=== PATIENT | male | born 1955 | race Hispanic/Latino ===

== ENCOUNTER 2019-10-18 18:25 | Emergency (ER) | payer OTHER ==
[2019-10-18] MEDS ORDERED: NA CHLORIDE 0.9% 1,000 ML ONE ×2 (18:55→20:22)
[2019-10-18 19:26] LABS: Absolute Lymphocytes (CBC) 3.7 K/uL (0.7-4.9); Basophils % 0.9 % (0-1.3); Hematocrit 49.9 % (39.6-49.0); Lymphocytes % 34.3 % (15.3-44.8); MPV 9.5 fL (7.6-11.3); RBC Red Blood Cell Count 5.64 M/uL (4.33-5.43)
[2019-10-18 21:21] LABS: Urine Blood NEGATIVE (NEG); Urine Glucose 2+ (NEG); Urine Protein NEGATIVE (NEG)
[2019-10-18 21:29] LABS: Urine Bacteria <20 /HPF (NONE SEEN); Urine Culture Reflex Order NOT NEEDED; Urine RBC <5 /HPF (NONE SEEN)
[2019-10-18 22:12] LABS: ALT/SGPT 45 U/L (12-78); AST/SGOT 68 U/L (15-37); Albumin 3.1 g/dL (3.4-5.0); Alkaline Phosphatase 116 U/L (45-117); BUN Blood Urea Nitrogen 13 mg/dL (7-18); Bicarbonate 21 mmol/L (21-32); Bilirubin Total 0.3 mg/dL (0.2-1.0); Glucose Level 334 mg/dL (74-106); Protein, Total 6.7 g/dL (6.4-8.2); Sodium Level 138 mmol/L (136-145)
[2019-10-18 22:13] LABS: Potassium ND mmol/L (3.5-5.1)
--- NOTE | 2019-10-18 22:16 | EDPHYS ---
Physician Documentation [facility] Name: Vitaly Weller Age: 64 yrs Sex: Male : 1955 Arrival Date: 10/18/2019 Time: 18:37 Bed 18 Private MD: ED Physician Andrew Mayfield HPI: 10/17 18:56 This 64 yrs old Male presents to ER via Ambulatory with complaints of High pm1 Blood Sugar. 18:56 The patient or guardian reports hyperglycemia, that was potentially precipitated by pm1 Unknown. Onset: The symptoms/episode began/occurred 1 week(s) ago. Associated signs and symptoms: Pertinent positives: polydipsia, polyuria, intermittent headache and nausea that has resolved, Pertinent negatives: Abdominal pain. The patient has not experienced similar symptoms in the past. The patient has not recently seen a physician, and does not have an established primary care provider. Patient was checking his blood sugar throughout the day today and they were reading in the 400s. Historical: - Allergies: 18:47 No Known Allergies; ll1 - PMHx: 18:47 None; ll1 - PSHx: 18:47 bilateral neck surgery-cannot recall procedure; ll1 - Social history:: Patient/guardian denies using alcohol, street drugs, tobacco products. ROS: 18:56 Constitutional: Negative for fever, chills, and weight loss, ENT: Negative for injury, pm1 pain, and discharge, Neck: Negative for injury, pain, and swelling, Cardiovascular: Negative for chest pain, palpitations, and edema, Respiratory: Negative for shortness of breath, cough, wheezing, and pleuritic chest pain. 18:56 Back: Negative for injury and pain, : Negative for injury, bleeding, discharge, and swelling, MS/Extremity: Negative for injury and deformity, Skin: Negative for injury, rash, and discoloration. 18:56 Abdomen/GI: Positive for Nausea that has resolved, Negative for abdominal pain, vomiting, diarrhea, constipation. 18:56 Neuro: Positive for Headache that has resolved. 18:56 Endocrine: Positive for polydipsia, polyuria. Exam: 18:56 Constitutional: This is a well developed, well nourished patient who is awake, alert, pm1 and in no acute distress. Head/Face: Normocephalic, atraumatic. Neck: Trachea midline, no thyromegaly or masses palpated, and no cervical lymphadenopathy. Supple, full range of motion without nuchal rigidity, or vertebral point tenderness. No Meningismus. Chest/axilla: Normal chest wall appearance and motion. Nontender with no deformity. No lesions are appreciated. 18:56 Abdomen/GI: Soft, non-tender. No distension. No guarding or rebound. No evidence of tenderness throughout. Back: No spinal tenderness. No costovertebral tenderness. Full range of motion. 18:56 Skin: Warm, dry with normal turgor. Normal color with no rashes, no lesions, and no evidence of cellulitis. MS/ Extremity: Pulses equal, no cyanosis. Neurovascular intact. Full, normal range of motion. 18:56 Cardiovascular: Exam negative for acute changes, Rate: normal, Rhythm: regular, Pulses: no pulse deficits are appreciated, Edema: is not appreciated. 18:56 Respiratory: Exam negative for acute changes, shortness of breath, wheezing. 18:56 Neuro: Exam negative for acute changes, Orientation: is normal, Mentation: is normal, Motor: is normal, moves all fours, Gait: is steady, at a normal pace, without difficulty. Vital Signs: 18:44 BP 129 / 89; Pulse 66; Resp 18; Temp 97.0; Pulse Ox 100% ; Pain 0/10; ll1 19:00 BP 121 / 80; Pulse 72; Resp 18; Pulse Ox 97% ; ah 20:00 BP 114 / 71; Pulse 59; Resp 18; Pulse Ox 99% ; ah 21:15 BP 151 / 90; Pulse 58; Resp 18; Pulse Ox 99% ; ea 22:00 BP 120 / 80; Pulse 58; Resp 18; Pulse Ox 98% ; ea MDM: 18:40 Patient medically screened. [facility] 20:03 Data reviewed: vital signs. Data interpreted: Pulse oximetry: on room air is 100 %. pm1 Interpretation: normal. 21:35 ED course: Rocephin canceled. No UTI present. Nitrite "positive" was input error. Urine pm1 microscopy is negative. 22:15 Counseling: I had a detailed discussion with the patient and/or guardian regarding: the pm1 historical points, exam findings, and any diagnostic results supporting the discharge/admit diagnosis, lab results, the need for outpatient follow up, to return to the emergency department if symptoms worsen or persist or if there are any questions or concerns that arise at home. 10/17 18:44 Order name: CBC with Diff; Complete Time: 20:11 pm1 10/17 18:44 Order name: CMP; Complete Time: 22:14 pm1 10/17 18:57 Order name: Glucose, Ancillary Testing; Complete Time: 19:36 EDMS 10/17 20:51 Order name: Urine Microscopic Only; Complete Time: 21:33 pm1 10/17 18:44 Order name: Urine Dipstick-Ancillary (obtain specimen); Complete Time: 20:09 pm1 10/17 18:44 Order name: IV Saline Lock; Complete Time: 19:19 pm1 10/17 18:44 Order name: Fingerstick Glucose; Complete Time: 18:46 pm1 10/17 21:17 Order name: Urine Dipstick--Ancillary (enter results); Complete Time: 21:22 mw2 10/17 21:25 Order name: Glucose, Ancillary Testing; Complete Time: 21:25 EDMS Administered Medications: 19:10 Drug: NS 0.9% 1000 ml Route: IV; Rate: 1000 ml; Site: right antecubital; 21:00 Follow up: Response: No adverse reaction; IV Status: Completed infusion; IV Intake: ea 1000ml 20:25 Drug: NS 0.9% 1000 ml Route: IV; Rate: 1000 ml; Site: right antecubital; 21:30 Follow up: Response: No adverse reaction; IV Status: Completed infusion; IV Intake: ea 1000ml 21:34 Not Given (Physician Discretion; No UTI present. Nitrite positive was an input error): pm1 Rocephin 1 grams IV at calculated rate once; Given slow IV push per pharmacy instructions Disposition: 10/18 10:07 Co-signature as Attending Physician, Andrew Mayfield MD I agree with the assessment and andie plan of care. Disposition: 10/18/19 22:15 Discharged to Home. Impression: Hyperglycemia, unspecified. - Condition is Stable. - Discharge Instructions: Fat and Cholesterol Restricted Diet, Hyperglycemia, Blood Glucose Monitoring, Adult, High Cholesterol. - Prescriptions for Metformin 500 mg Oral Tablet - take 1 tablet by ORAL route once daily for 7 days Then take 1 tablet with morning meals AND evening meals; 21 tablet. - Medication Reconciliation Form, Thank You Letter, Antibiotic Education, Prescription Opioid Use form. - Follow up: Emergency Department; When: As needed; Reason: Worsening of condition. Follow up: Private Physician; When: 2 - 3 days; Reason: Recheck today's complaints, Continuance of care, Re-evaluation by your physician. - Problem is new. - Symptoms have improved. Signatures: Dispatcher [employer] EDID Andrew Mayfield MD MD cha Marinas, Patrick, TECHNOLOGIST INFECTIOUS DISEASE TECHNOLOGIST INFECTIOUS DISEASE pm1 Margarita Martinez RN RN ea Harris, Amy, RN RN ah Lewis, Lynsay, RN RN ll1 Corrections: (The following items were deleted from the chart) 10/17 21:17 20:19 URINE DIPSTICK--ANCILLARY+U.LAB.BRZ ordered. EDID EDID :17 20:49 URINE DIPSTICK--ANCILLARY+U.LAB.BRZ reviewed. pm1 EDMS 21:18 20:51 Urine Culture+BA.LAB.BRZ ordered. [facility] EDID 22:27 22:15 10/18/2019 22:15 Discharged to Home. Impression: Hyperglycemia, unspecified. ea Condition is Stable. Discharge Instructions: Hyperglycemia, Blood Glucose Monitoring, Adult, Fat and Cholesterol Restricted Diet, High Cholesterol. Prescriptions for Metformin 500 mg Oral Tablet - take 1 tablet by ORAL route once daily for 7 days Then take 1 tablet with morning meals AND evening meals; 21 tablet. and Forms are Medication Reconciliation Form, Thank You Letter, Antibiotic Education, Prescription Opioid Use. Follow up: Emergency Department; When: As needed; Reason: Worsening of condition. Follow up: Private Physician; When: 2 - 3 days; Reason: Recheck today's complaints, Continuance of care, Re-evaluation by your physician. Problem is new. Symptoms have improved. pm1
--- NOTE | 2019-10-18 22:16 | ER ---
Nurse's Notes [facility] Name: Vitaly Weller Age: 64 yrs Sex: Male : 1955 Arrival Date: 10/18/2019 Time: 18:37 Bed 18 Private MD: Diagnosis: Hyperglycemia, unspecified Presentation: 10/17 18:44 Chief complaint: Patient states: Used his sons glucometer today. All reading were in ll1 the 400's. Reports feeling very thirsty, frequent urination, and dry mouth for 1 week. Int. HERNANDEZ with nausea, none now. Coronavirus screen: Proceed with normal triage. Patient denies a cough. Patient denies shortness of breath or difficulty breathing. Patient denies measured and/or subjective temperature greater than 100.4F prior to today's visit. Patient denies travel on a cruise ship or to a country the [facility] currently lists as an affected area. Patient denies contact with known and/or suspected case of COVID-19. Ebola Screen: Patient denies travel to an Ebola-affected area in the 21 days before illness onset. Initial Sepsis Screen: Does the patient meet any 2 criteria? No. Patient's initial sepsis screen is negative. Does the patient have a suspected source of infection? No. Patient's initial sepsis screen is negative. Risk Assessment: Do you want to hurt yourself or someone else? Patient reports no desire to harm self or others. Onset of symptoms was October 11, 2019. 18:44 Method Of Arrival: Ambulatory ll1 18:44 Acuity: NAKUL 3 ll1 Historical: - Allergies: 18:47 No Known Allergies; ll1 - PMHx: 18:47 None; ll1 - PSHx: 18:47 bilateral neck surgery-cannot recall procedure; ll1 - Social history:: Patient/guardian denies using alcohol, street drugs, tobacco products. Screenin:51 Abuse screen: Denies threats or abuse. Nutritional screening: No deficits noted. Tuberculosis screening: No symptoms or risk factors identified. Fall Risk None identified. Assessment: 19:10 General: Appears in no apparent distress. Behavior is calm, cooperative. General: Reports fatigue for >3 days, increased thirst. Pain: Denies pain. Neuro: Level of Consciousness is awake, alert, Oriented to person, place, time. Cardiovascular: Denies chest pain, Heart tones S1 S2 Capillary refill < 3 seconds Patient's skin is warm and dry. Respiratory: Airway is patent Respiratory effort is even, unlabored, Respiratory pattern is regular, symmetrical. GI: Bowel sounds present X 4 quads. Abd is soft and non tender X 4 quads. Patient currently denies diarrhea, nausea, vomiting. : Reports urinary frequency, since poor historian, states a few weeks. EENT: No signs and/or symptoms were reported regarding the EENT system. Derm: No signs and/or symptoms reported regarding the dermatologic system. Musculoskeletal: No signs and/or symptoms reported regarding the musculoskeletal system. Circulation, motion, and sensation intact. Capillary refill < 3 seconds. 21:56 General: Appears in no apparent distress. Behavior is calm, cooperative, appropriate ea for age. Pain: Denies pain. Neuro: Level of Consciousness is awake, alert, Oriented to person, place, time, situation. Cardiovascular: Patient's skin is warm and dry. Respiratory: Airway is patent Respiratory effort is even, unlabored, Respiratory pattern is regular, symmetrical. Derm: Skin is dry, Skin is normal, Skin temperature is warm. 22:25 Reassessment: Patient and/or family updated on plan of care and expected duration. Pain ea level reassessed. Patient is alert, oriented x 3, equal unlabored respirations, skin warm/dry/pink. Discharge instruction given to patient, verbalized the understanding of instruction. Pt left ED ambulatory tolerating well. Vital Signs: 18:44 BP 129 / 89; Pulse 66; Resp 18; Temp 97.0; Pulse Ox 100% ; Pain 0/10; ll1 19:00 BP 121 / 80; Pulse 72; Resp 18; Pulse Ox 97% ; ah 20:00 BP 114 / 71; Pulse 59; Resp 18; Pulse Ox 99% ; ah 21:15 BP 151 / 90; Pulse 58; Resp 18; Pulse Ox 99% ; ea 22:00 BP 120 / 80; Pulse 58; Resp 18; Pulse Ox 98% ; ea ED Course: 18:37 Patient arrived in ED. am2 18:39 Anderson Rodriguez NP is PHCP. pm1 18:39 Andrew Mayfield MD is Attending Physician. pm1 18:45 Judy Gonzalez, RN is Primary Nurse. 18:46 Triage completed. ll1 18:47 Arm band placed on Patient placed in an exam room, on a stretcher. 1 19:44 Inserted saline lock: 20 gauge in right antecubital area, using aseptic technique. 19:45 Lab(s) recollected, by me, sent to lab. jp3 19:52 Patient has correct armband on for positive identification. Bed in low position. Call light in reach. Side rails up X 1. 20:09 Urine collected: clean catch specimen, clear, francisco colored. 22:24 No provider procedures requiring assistance completed. IV discontinued, intact, ea bleeding controlled, No redness/swelling at site. Pressure dressing applied. Administered Medications: 19:10 Drug: NS 0.9% 1000 ml Route: IV; Rate: 1000 ml; Site: right antecubital; 21:00 Follow up: Response: No adverse reaction; IV Status: Completed infusion; IV Intake: ea 1000ml 20:25 Drug: NS 0.9% 1000 ml Route: IV; Rate: 1000 ml; Site: right antecubital; 21:30 Follow up: Response: No adverse reaction; IV Status: Completed infusion; IV Intake: ea 1000ml 21:34 Not Given (Physician Discretion; No UTI present. Nitrite positive was an input error): pm1 Rocephin 1 grams IV at calculated rate once; Given slow IV push per pharmacy instructions Intake: 21:00 IV: 1000ml; Total: 1000ml. ea 21:30 IV: 1000ml; Total: 2000ml. ea Outcome: 22:15 Discharge ordered by MD. pm1 22:27 Discharged to home ambulatory. ea 22:27 Condition: stable 22:27 Discharge instructions given to patient, Instructed on discharge instructions, follow up and referral plans. medication usage, Demonstrated understanding of instructions, follow-up care, medications, Prescriptions given X 1. 22:27 Patient left the ED. ea Signatures: Anderson Rodriguez, KAREEN R AND D LAB TECHNICIAN pm1 Shannon Gunderson am2 Margarita Martinez, RN RN Zana Haas 3 Judy Gonzalez, RN RN Prince Herrmann RN RN ll1
[2019-10-18 22:33] VITALS: TEMP 97
[2019-10-18 22:36] VITALS: BP 114/71; O2SAT 99
== END 2019-10-18 22:27 | disposition home or self-care (01) ==
LOC: ER 18:25
DX: R73.9 Hyperglycemia, unspecified (principal)
CPT/HCPCS: 96361; 85025; 36415; 82947 ×2; 80053; 96360; 99284; J7030 ×2; 81003; 81015

== ENCOUNTER 2024-02-07 16:32 | Emergency (ER) | payer OTHER, SELFPAY ==
[2024-02-07] MEDS ORDERED: HYDROMORPHONE HCL 1 MG/ML INJ ONE ×3 (17:17→21:32)
[2024-02-07] MEDS ORDERED: ONDANSETRON 4 MG/2 ML VIAL ONE ×2 (17:55→20:22)
[2024-02-07] MEDS ORDERED: LIDOCAINE 2% MPF 5 ML VIAL ONE (18:07)
[2024-02-07 18:08] LABS: PT Prothrombin Time 11.7 SECONDS (9.4-12.5); Protime INR 1.05
[2024-02-07] MEDS ORDERED: METOCLOPRAMIDE 10 MG/2mL INJ ONE (18:17)
--- NOTE | 2024-02-07 18:18 | ER ---
Nurse's Notes [facility] Name: Vitaly Weller Age: 68 yrs Sex: Male : 1955 Arrival Date: 02/07/2024 Time: 16:32 Bed 19 Private MD: Diagnosis: Fall on and from ladder, initial encounter;Displaced fracture of proximal phalanx of right little finger, initial encounter for open fracture;Dislocation of proximal interphalangeal joint of left middle finger, initial encounter;Nausea with vomiting, unspecified;Contusion of unspecified front wall of thorax Presentation: 02/06 16:50 Chief complaint: Patient's son or daughter states: Daughter reports pt fell from the tl4 top of a 12ft ladder at unknown time today. Pt denies LOC. Pt devon right side head pain, middle chest abrasions/pain, right shoulder abrasion, open right 4th/5th digit laceration, and left middle finger pain. Coronavirus screen: At this time, the client does not indicate any symptoms associated with coronavirus-19. Ebola Screen: No symptoms or risks identified at this time. Initial Sepsis Screen: Does the patient meet any 2 criteria? No. Patient's initial sepsis screen is negative. Does the patient have a suspected source of infection? No. Patient's initial sepsis screen is negative. Risk Assessment: Do you want to hurt yourself or someone else? Patient reports no desire to harm self or others. Onset of symptoms was February 07, 2024. 16:50 Method Of Arrival: Wheelchair tl4 16:50 Acuity: NAKUL 2 tl4 Triage Assessment: 16:53 General: Appears distressed, uncomfortable, Behavior is cooperative. Pain: Complains of tl4 pain in face, back, chest, right hand, left hand and right arm. EENT: No signs and/or symptoms were reported regarding the EENT system. Neuro: Level of Consciousness is awake, alert, obeys commands, Oriented to person, place, time, situation. Cardiovascular: Capillary refill < 3 seconds Patient's skin is warm and dry. Respiratory: Airway is patent Respiratory effort is even, unlabored, Respiratory pattern is regular, symmetrical. GI: No signs and/or symptoms were reported involving the gastrointestinal system. : No signs and/or symptoms were reported regarding the genitourinary system. Derm: No signs and/or symptoms reported regarding the dermatologic system. Musculoskeletal: Reports pain in face, back, chest, right hand, left hand and right arm. Injury Description: Abrasion sustained to face, back, chest, right hand and right arm Head injury sustained to right methodist Bruise sustained to left hand Laceration sustained to right hand. Historical: - Allergies: 16:53 No Known Allergies; tl4 - PMHx: 18:04 Diabetes mellitus; nj1 - Immunization history:: Adult Immunizations unknown. - Infectious Disease History:: Denies. - Social history:: Smoking status: Patient denies any tobacco usage or history of. Screenin:54 [facility] ED Fall Risk Assessment (Adult) History of falling in the last 3 months, kj2 including since admission Yes- single mechanical fall (1 pt) Confusion or Disorientation No (0 pts) Intoxicated or Sedated No (0 pts) Impaired Gait No (0 pts) Mobility Assist Device Used No (0 pt) Altered Elimination No (0 pt) Score/Fall Risk Level 0 - 2 = Low Risk Maintained a safe environment, Hourly rounding (assess needs \T\ fall precautionary measures) done. Abuse screen: Denies threats or abuse. Denies injuries from another. Nutritional screening: No deficits noted. Tuberculosis screening: No symptoms or risk factors identified. Assessment: 19:00 Reassessment: No changes from previously documented assessment. Patient and/or family cp4 updated on plan of care and expected duration. Pain level reassessed. Patient is alert, oriented x 3, equal unlabored respirations, skin warm/dry/pink. 20:00 Reassessment: No changes from previously documented assessment. Patient and/or family cp4 updated on plan of care and expected duration. Pain level reassessed. Patient is alert, oriented x 3, equal unlabored respirations, skin warm/dry/pink. 21:00 General: Called for a transfer truck with [employer], on their way back from [place] [id number] and will provide transfer. 21:00 Reassessment: No changes from previously documented assessment. Patient and/or family cp4 updated on plan of care and expected duration. Pain level reassessed. Patient is alert, oriented x 3, equal unlabored respirations, skin warm/dry/pink. Vital Signs: 16:50 BP 130 / 94; Pulse 90; Resp 19; Temp 97.8(O); Pulse Ox 98% on R/A; Weight 77.11 kg; tl4 Height 5 ft. 7 in. ; Pain 10/10; 17:55 BP 104 / 90; Resp 18; Temp 98.1; Pulse Ox 97% on R/A; kj2 19:00 BP 152 / 97; Pulse 80; Resp 18; Pulse Ox 99% ; cp4 20:00 BP 148 / 99; Pulse 83; Resp 18; Pulse Ox 99% ; cp4 21:00 BP 140 / 97; Pulse 91; Resp 18; Pulse Ox 99% ; cp4 21:43 BP 145 / 102; Pulse 86; Resp 18; Temp 98.1; Pulse Ox 99% ; cp4 16:50 Body Mass Index 26.63 (77.11 kg, 170.18 cm) tl4 16:50 Pain Scale: Adult tl4 ED Course: 16:35 Patient arrived in ED. mg5 16:40 Andrew Maya PA is PHCP. cp 16:40 Bismark Louis MD is Attending Physician. cp 16:43 Alexa Leal, RHYS is Primary Nurse. kj2 16:53 Triage completed. tl4 16:55 Arm band placed on left wrist. tl4 16:56 Patient has correct armband on for positive identification. Placed in gown. Bed in low tl4 position. Call light in reach. Side rails up X 1. Adult w/ patient. 17:40 IV with fluids not infusing freely, without good blood return, IV discontinued, intact, nj1 bleeding controlled, No redness/swelling at site. Pressure dressing applied. 17:50 Inserted saline lock: 20 gauge in left wrist, using aseptic technique. Blood collected. nj1 Flushed with 10 mL NS. 18:13 XRAY Chest (1 view) In Process Unspecified. EDMS 18:13 XRAY Hand RIGHT 3 View In Process Unspecified. EDMS 18:13 XRAY Hand LEFT 3 View In Process Unspecified. EDMS 18:13 XRAY Humerus RIGHT In Process Unspecified. EDMS 18:32 CT Traumagram (Head C Spine CAP W Con) In Process Unspecified. EDMS 19:48 initiated transfer with [facility] spoke with Gwendolyn Hung. vk 20:13 patient was accepted to Dr. Hong Cope to [facility] ER per Gwendolyn Hung. vk 21:39 initiated transport with EMS spoke with Nitin accepted to transport patient to [facility] ER. 21:48 Provided Education on: transfer. cp4 21:48 No provider procedures requiring assistance completed. cp4 21:48 Patient transferred, IV remains in place. cp4 Administered Medications: 17:36 Drug: HYDROmorphone IVP 1 mg IVP once Route: IVP; Site: left antecubital; kj2 17:47 Follow up: Response: No adverse reaction; Pain is decreased kj2 17:56 Drug: Ondansetron IVP 2 mg IVP once; over 2 minutes Route: IVP; Site: left wrist; nj1 18:30 Follow up: Response: No adverse reaction; Nausea is decreased kj2 17:58 Drug: HYDROmorphone IVP 1 mg IVP once Route: IVP; Site: left wrist; nj1 18:30 Follow up: Response: No adverse reaction; Pain is decreased kj2 18:20 Drug: metoCLOPramide IVP 10 mg IVP once; over 1 to 2 minutes Route: IVP; Site: left nj1 wrist; 18:29 Follow up: Response: No adverse reaction; Nausea is decreased kj2 18:50 Drug: ceFAZolin IVPB 1 grams IVPB once Route: IVPB; Site: left wrist; kj2 19:00 Follow up: Response: No adverse reaction; IV Status: Completed infusion cp4 18:59 Not Given (Product Out of Stock): tetanus-diphtheria toxoidadult 0.5 ml IM once; nj1 Provide Vaccine Information Statement (VIS). 19:04 Drug: Boostrix Tdap IM 0.5 ml IM once; as a single dose Route: IM; Site: left deltoid; kj2 20:24 Follow up: Response: No adverse reaction cp4 20:24 Drug: Ondansetron IVP 4 mg IVP once; over 2 minutes Route: IVP; Site: left forearm; cp4 21:38 Follow up: Response: No adverse reaction; Nausea is decreased cp4 21:38 Drug: HYDROmorphone IVP 1 mg IVP once Route: IVP; Site: left antecubital; cp4 21:42 Follow up: Response: No adverse reaction; Pain is decreased cp4 Medication: 17:54 VIS not applicable for this client. kj2 Outcome: 18:17 ER care complete, transfer ordered by . cp 21:48 Transferred by ground EMS to [facility], Transfer form completed. X-rays sent cp4 w/ patient. 21:48 Condition: stable 21:48 Instructed on the need for transfer, 21:54 Patient left the ED. cp4 Signatures: Dispatcher [employer] EDMS Andrew Maya PA PA cp Meghan Garcia RN RN vc1 Honey Gutierrez RN RN nj1 Keiko Ulloa 5 Eva Luther cp4 Elliot Joseph RN RN tl4 Justyna Balderas Krystal, RN RN kj2 Corrections: (The following items were deleted from the chart) 21:53 20:13 patient was accepted to Dr. Hong Cope per Gwendolyn colin vk
--- NOTE | 2024-02-07 18:18 | EDPHYS ---
Physician Documentation [facility] Name: Vitaly Weller Age: 68 yrs Sex: Male : 1955 Arrival Date: 02/07/2024 Time: 16:32 Bed 19 Private MD: ED Physician Bismark Louis HPI: 02/06 17:00 This 68 yrs old Male presents to ER via Wheelchair with complaints of Finger cp Injury - LAC, Fall Injury. 17:00 Trauma demographics: County: The injury occurred in [place] Location of Injury: The cp injury occurred at work. Mechanism of injury: Fall: the patient fell from a ladder and struck a concrete surface. Associated injuries: The patient sustained injury to the head, contusion, injury to the chest, abrasion, contusion, right hand and left hand. Onset: The symptoms/episode began/occurred just prior to arrival. Historical: - Allergies: 16:53 No Known Allergies; tl4 - PMHx: 18:04 Diabetes mellitus; nj1 - Immunization history:: Adult Immunizations unknown. - Infectious Disease History:: Denies. - Social history:: Smoking status: Patient denies any tobacco usage or history of. ROS: 17:05 Constitutional: HX per HPI cp 17:05 Constitutional: Negative for body aches, chills, fever, 17:05 Abdomen/GI: Positive for nausea and vomiting, 17:05 MS/extremity: Positive for injury or acute deformity, pain, of the right hand and left hand, 17:05 Neuro: Positive for headache, 17:05 All other systems are negative, Exam: 17:10 Constitutional: The patient appears in no acute distress, alert, awake, cp non-diaphoretic, non-toxic, well developed, well nourished, uncomfortable, 17:10 Head/face: Noted is contusion, that is superficial, of the right lateral side of head, swelling, that is mild, 17:10 Eyes: Periorbital structures: appear normal, Pupils: equal, round, and reactive to cp light and accomodation, Extraocular movements: intact throughout, Lids and lashes: appear normal, bilaterally, 17:10 ENT: External ear(s): are unremarkable, Ear canal(s): are normal, clear, TM's: dullness, bilaterally, Nose: is normal, Posterior pharynx: Airway: no evidence of obstruction, patent, Dental exam: no acute changes, 17:10 Neck: C-spine: C-collar placed in ED, crepitus, is not appreciated, 17:10 Chest/axilla: Inspection: abrasion, that is moderate, of the anterior chest Palpation: crepitus, is not appreciated, tenderness, that is mild, of the right clavicle, left clavicle, anterior aspect of right upper chest, anterior aspect of left upper chest and mid-sternal area, 17:10 Cardiovascular: Rate: normal, Rhythm: regular, JVD: is not appreciated, 17:10 Respiratory: the patient does not display signs of respiratory distress, Respirations: normal, no use of accessory muscles, no retractions, labored breathing, is not present, Breath sounds: are clear throughout, no decreased breath sounds, no stridor, no wheezing, 17:10 Abdomen/GI: Inspection: abdomen appears normal, Bowel sounds: active, all quadrants, Palpation: soft, in all quadrants, mild abdominal tenderness, in all quadrants, 17:10 Back: ROM is normal, vertebral tenderness, is not appreciated, cp 17:10 Neuro: Orientation: to person, place \T\ time. Mentation: is normal, 17:10 Musculoskeletal/extremity: Extremities: noted in the left hand: amputated index finger, cp deformity of proximal interphalangeal joint of middle finger, noted in the right hand: large laceration of right fifth finger extending dorsally with deformity of proximal phalanx right fifth finger, sluggish cap refill with dusky appearance of finger, 17:32 ECG was reviewed by the Attending Physician. cp Vital Signs: 16:50 BP 130 / 94; Pulse 90; Resp 19; Temp 97.8(O); Pulse Ox 98% on R/A; Weight 77.11 kg; tl4 Height 5 ft. 7 in. ; Pain 10/10; 17:55 BP 104 / 90; Resp 18; Temp 98.1; Pulse Ox 97% on R/A; kj2 19:00 BP 152 / 97; Pulse 80; Resp 18; Pulse Ox 99% ; cp4 20:00 BP 148 / 99; Pulse 83; Resp 18; Pulse Ox 99% ; cp4 21:00 BP 140 / 97; Pulse 91; Resp 18; Pulse Ox 99% ; cp4 21:43 BP 145 / 102; Pulse 86; Resp 18; Temp 98.1; Pulse Ox 99% ; cp4 16:50 Body Mass Index 26.63 (77.11 kg, 170.18 cm) tl4 16:50 Pain Scale: Adult tl4 MDM: 16:43 Patient medically screened. 20:00 Data reviewed: vital signs, nurses notes, lab test result(s), radiologic studies, CT cp scan, plain films, and as a result, I will administer antibiotics transfer patient. 20:00 Differential diagnosis: closed head injury, extremity fracture, C spine fracture, T cp spine fracture, L spine fracture. Care significantly affected by the following chronic conditions: Diabetes. Counseling: I had a detailed discussion with the patient and/or guardian regarding the historical points, exam findings, and any diagnostic results supporting the discharge/admit diagnosis, lab results, radiology results, the need to transfer to another facility, [facility] does not immediately have the required specialist. 02/06 16:55 Order name: Basic Metabolic Panel; Complete Time: 19:33 cp 08/16 19:33 Interpretation: Normal except: NA 135; GLUC 342; GFR 67. 16 16:55 Order name: CBC with Diff; Complete Time: 19:33 cp 0816 16:55 Order name: PT-INR; Complete Time: 19:33 cp 0816 16:55 Order name: Troponin HS; Complete Time: 19:33 16 16:55 Order name: Type And Screen; Complete Time: 21:32 cp 02/06 16:55 Order name: XRAY Chest (1 view); Complete Time: 19:33 cp 08/16 16:55 Order name: XRAY Hand RIGHT 3 View; Complete Time: 19:33 cp 16 16:55 Order name: XRAY Hand LEFT 3 View; Complete Time: 19:33 cp 08/16 16:55 Order name: XRAY Humerus RIGHT; Complete Time: 19:33 cp 16 16:55 Order name: CT Traumagram (Head C Spine CAP W Con); Complete Time: 19:43 cp 16 16:55 Order name: Cardiac monitoring; Complete Time: 17:38 cp / 16:55 Order name: EKG - Nurse/Tech; Complete Time: 17:37 cp 08/16 16:55 Order name: IV Saline Lock; Complete Time: 17:37 cp 16 16:55 Order name: Labs collected and sent; Complete Time: 17:37 cp 16 16:55 Order name: O2 Per Protocol; Complete Time: 17:37 cp 16 16:55 Order name: O2 Sat Monitoring; Complete Time: 17:37 cp 16 17:23 Order name: Labs - recollect needed: please recollect all labs; please recollect and em1 chago FRAIRE; Complete Time: 17:53 16 18:25 Order name: NPO; Complete Time: 18:51 cp EC:32 Rate is 81 beats/min. Rhythm is regular. IL interval is normal. QRS interval is normal. cp QT interval is normal. T waves are Inverted in lead aVR. Interpreted by me. Reviewed by me. Administered Medications: 17:36 Drug: HYDROmorphone IVP 1 mg IVP once Route: IVP; Site: left antecubital; kj2 17:47 Follow up: Response: No adverse reaction; Pain is decreased kj2 17:56 Drug: Ondansetron IVP 2 mg IVP once; over 2 minutes Route: IVP; Site: left wrist; nj1 18:30 Follow up: Response: No adverse reaction; Nausea is decreased kj2 17:58 Drug: HYDROmorphone IVP 1 mg IVP once Route: IVP; Site: left wrist; nj1 18:30 Follow up: Response: No adverse reaction; Pain is decreased kj2 18:20 Drug: metoCLOPramide IVP 10 mg IVP once; over 1 to 2 minutes Route: IVP; Site: left nj1 wrist; 18:29 Follow up: Response: No adverse reaction; Nausea is decreased kj2 18:50 Drug: ceFAZolin IVPB 1 grams IVPB once Route: IVPB; Site: left wrist; kj2 19:00 Follow up: Response: No adverse reaction; IV Status: Completed infusion cp4 18:59 Not Given (Product Out of Stock): tetanus-diphtheria toxoidadult 0.5 ml IM once; nj1 Provide Vaccine Information Statement (VIS). 19:04 Drug: Boostrix Tdap IM 0.5 ml IM once; as a single dose Route: IM; Site: left deltoid; kj2 20:24 Follow up: Response: No adverse reaction cp4 20:24 Drug: Ondansetron IVP 4 mg IVP once; over 2 minutes Route: IVP; Site: left forearm; cp4 21:38 Follow up: Response: No adverse reaction; Nausea is decreased cp4 21:38 Drug: HYDROmorphone IVP 1 mg IVP once Route: IVP; Site: left antecubital; cp4 21:42 Follow up: Response: No adverse reaction; Pain is decreased cp4 Disposition Summary: 02/07/24 18:17 Transfer Ordered Notes: Transfer Location: [facility] cp Reason: Higher level of care cp Condition: Stable cp Problem: new cp Symptoms: have improved cp Accepting Physician: DR All Cope(02/07/24 21:54) cp4 Diagnosis - Fall on and from ladder, initial encounter cp - Displaced fracture of proximal phalanx of right little finger, initial encounter cp for open fracture - Dislocation of proximal interphalangeal joint of left middle finger, initial cp encounter - Nausea with vomiting, unspecified cp - Contusion of unspecified front wall of thorax cp Forms: - Medication Reconciliation Form cp - SBAR form cp Addendum: 02/09/2024 18:59 Co-signature as Attending Physician, Bismark Louis MD I reviewed the patient's care r n provided by the Advanced Practice Provider and agree with the diagnosis and treatment plan. Signatures: Dispatcher [employer] EDBismark Nicholson MD MD rn Martinez, Eric em1 Andrew Maya PA PA cp Honey Gutierrez RN RN nj1 Eva Luther cp4 Elliot Joseph RN RN tl4 Alexa Leal RN RN kj2 Corrections: (The following items were deleted from the chart) 02/06 16:55 16:55 Hand Right 3 View+RAD.RAD.BRZ ordered. EDMS EDMS 16:56 16:56 Hand Left 3 View+RAD.RAD.BRZ ordered. EDMS EDMS 16:56 16:56 Humerus Right+RAD.RAD.BRZ ordered. EDMS EDMS 16:56 16:56 Head C Spine CAP W Con+CT.RAD.BRZ ordered. EDMS EDMS 20:18 18:17 Doctor cp cp 20:24 20:18 DR D. Freet cp cp 21:54 20:24 DR Carrizales Free cp cp4
[2024-02-07] MEDS ORDERED: CEFAZOLIN SODIUM 1 GM/VIAL ONE (18:34)
[2024-02-07] MEDS ORDERED: TDAP (DIPHTH,PERTUSS(ACELL),TET VAC) 0.5 ML VIAL IMVAC ONE (18:34)
[2024-02-07 18:39] LABS: Anion Gap 9.6 mEq/L (5.0-15.0); Troponin High Sensitivity 3.4 pg/mL (<58.9)
[2024-02-07] MEDS ORDERED: NA CHLORIDE 0.9% 50 ML ONE (18:39)
[2024-02-07 18:41] LABS: Potassium 3.6 mEq/L (3.5-5.1)
[2024-02-07 18:45] LABS: Absolute Basophils 0.1 K/uL (0-0.5); Absolute Eosinophils 0.1 K/uL (0-0.5); Absolute Lymphocytes (CBC) 2.8 K/uL (0.7-4.9); Absolute Monocytes 0.5 K/uL (0.1-1.3); Absolute Neutrophil 10.4 K/uL (1.8-8.0); Basophils % 0.8 % (0-1.3); Eosinophils % 0.9 % (0-4.4); Hematocrit 47.6 % (39.6-49.0); Lymphocytes % 19.8 % (15.3-44.8); MCH 30.3 pg (27.0-35.0); MCHC 33.6 g/dL (32.0-36.0); MCV 90.3 fL (80-100); MPV 8.7 fL (7.6-11.3); Monocytes % 3.8 % (3.3-12.3); Neutrophils % 74.7 % (41.7-73.7); Nucleated Red Blood Cells % 0.1 % (0-0); Platelets 316 thou/uL (152-406); RBC Red Blood Cell Count 5.27 M/uL (4.33-5.43); Red Cell Distribution Width 13.8 % (12.1-15.2)
--- NOTE | 2024-02-07 19:15 | RAD REPORT ---
EXAM DESCRIPTION: Vu Single View02/07/2024 6:11 pm CLINICAL HISTORY: fall COMPARISON: No comparisons TECHNIQUE: Portable AP view of the chest. FINDINGS: The lungs are clear apart from mild bibasilar streaky atelectatic changes. No pneumothora x or effusion. The cardiomediastinal contours are unremarkable. IMPRESSION: No acute cardiopulmonary process.
--- NOTE | 2024-02-07 19:17 | RAD REPORT ---
EXAM DESCRIPTION: RAD - Humerus Right - 02/07/2024 6:11 pm CLINICAL HISTORY: fall;Pain COMPARISON: No comparisons TECHNIQUE: Right humerus, 3 views. FINDINGS: No fracture is identified. Deformity of the distal humerus with some early degenerative ch anges particularly of the ulnotrochlear articulation, findings may relate to remote trauma. There is no dislocation or periosteal reaction noted. No foreign body or other soft tissue abnormality. IMPRESSION: No acute osseus abnormality. Distal right humerus deformity, may relate to sequelae of r emote trauma.
--- NOTE | 2024-02-07 19:19 | RAD REPORT ---
EXAM DESCRIPTION: RAD - Hand Right 3 View - 02/07/2024 6:11 pm CLINICAL HISTORY: trauma COMPARISON: Hand Left 3 View dated 02/07/2024; Humerus Right dated 02/07/2024; Chest Single View dated 02/07/2024; Head C Spine Cap W Con dated 02/07/2024 TECHNIQUE: Right hand, 3 views. FINDINGS: Displaced midshaft fifth digit proximal phalanx fracture. Volar angulation and some overla p of the fracture fragments. Overlying soft tissue irregularity. Punctate foci of metallic density al arturo the dorsal soft tissues of the hand. IMPRESSION: Displaced and angulated midshaft fifth digit proximal phalanx fracture. Overlying soft t issue irregularity, correlate clinically for open fracture.
--- NOTE | 2024-02-07 19:21 | RAD REPORT ---
EXAM DESCRIPTION: DANGELO CASE - 02/07/2024 6:11 pm CLINICAL HISTORY: PAIN COMPARISON: No comparisons TECHNIQUE: Left hand, 3 views. FINDINGS: No fracture is identified. Sequelae of prior second digit amputation at the base of the pr oximal phalanx Dorsal dislocation of the third digit middle phalanx relative to the proximal phalanx with surroundin g soft tissue swelling. No other suspicious focal osseous lesion. Mild degenerative changes of the thumb base. No foreign body or other soft tissue abnormality. IMPRESSION: Dorsal dislocation at the third digit proximal interphalangeal phalanx. Sequelae of prior second digit amputation at the base of the proximal phalanx.
--- NOTE | 2024-02-07 19:40 | RAD REPORT ---
EXAM DESCRIPTION: CT - Head C Spine Cap W Yair - 02/07/2024 6:30 pm CLINICAL HISTORY: fall COMPARISON: No comparisons TECHNIQUE: Head and cervical spine CT images were obtained without IV contrast. Chest, abdomen, and pelvis CT images were obtained following intravenous administration of 90 mL Isovue-300. Multiplanar reformats were generated and reviewed. All CT scans are performed using dose optimization technique as appropriate and may include automated exposure control or mA/KV adjustment according to patient size. FINDINGS: CT HEAD: No intracranial hemorrhage, mass effect, or edema. No evidence of acute territorial infarct. No midli ne shift or abnormal fluid collection. The ventricles are normal in caliber and configuration for age . Basal cisterns are patent. Moderate right maxillary sinus mucosal thickening. No acute skull fractu re. Swelling and small hematoma along the right parietal scalp. CT CERVICAL SPINE: No acute cervical spine fracture or subluxation. Vertebral body heights are well maintained. Facet nash ints are normal in alignment. No hyperattenuating canal hematoma. Prevertebral and paraspinous soft t issues are unremarkable. CT CHEST: No pneumothorax, pulmonary contusion or pleural fluid collection. No mediastinal hematoma and the aor ta and pulmonary arteries are unremarkable. No chest will mass or abnormal axillary finding. No displ aced rib fracture or other significant bony finding. CT ABDOMEN/ PELVIS: No evidence of traumatic injury to solid abdominal viscera. Gallbladder and biliary tree are unremark able. No bowel injury or significant finding. No free air, free fluid or abnormal fat stranding. No u rinary bladder abnormality. Diffuse hepatic parenchymal hypoattenuation suggesting steatosis. Small c ortical lower pole right renal cyst, measuring 1.9 cm. Left inguinal hernia containing fat. No significant bony finding. IMPRESSION: Right parietal scalp swelling and small hematoma. No other acute traumatic findings. Other incidental findings including a left inguinal hernia containing fat.
[2024-02-07 22:18] VITALS: TEMP 98.1
[2024-02-07 22:20] VITALS: O2SAT 99
[2024-02-07 22:23] VITALS: BP 145/102
--- OUTSIDE RECORDS SUMMARY | 2024-02-10 08:45 | XMS REPORT | Continuity of Care Document ---
Author Name Unknown Address [address] [facility] [address] [place] [address] [facility] Address [address] [facility] [address] [place] [address] Care Team Providers Care Restaurant Lead Name Role Phone Pcp, Patient Does Not Have A Primary Care Physic lala BISHOP PURI Attending Clinician Tha Puri MD, Bishop Hung Attending Clinician [phone] Allergies, Adverse Reactions, Alerts Allergy Name Allergy Type Status Severity Reaction(s) Onset Date Inactive Date Treating Clinician Comments Source NO KNOWN ALLERGIE S Drug Class Active [facility] Social History Social Habit Start Date Stop Date Quantity Comments Source Sexual orientation U [facility] Sex Assigned At 1955 00:00:00 1955 00:00:00 [facility] Smoking Status Start Date Stop Date Source Tobacco smoking consumption unknown [facility] Medications Ordered Medication Name Filled Medication Name Start Date Stop Date Current Medication? Ordering Clinician Indication Dosage Frequency Signature (SIG) Comments Components Source Lyrica 50 mg capsule 2023-12-17 00:00: 00 Yes 1mg Pop Camejo gabapentin 300 mg capsule 2023-0 12-15 00:00: 00 Yes 1mg Pop Camejo Lyrica 50 mg capsule 2023-0 12-15 00:00: 00 Yes 1mg Pop Camejo acyclovir 400 mg tablet 2023-0 18 00:00: 00 Yes 1mg Pop Camejo acyclovir 800 mg tablet 2023-0 12-09 00:00: 00 Yes 1mg Pop Camejo gabapentin 300 mg capsule 18 00:00: 00 Yes 1mg Pop Camejo traMADoL 50 mg tablet 16 00:00: 00 Yes [id number] 50mg Take 1 tablet by mouth every 6 (six) hours as needed (pain). Indication s: acute pain [facility] ondansetron 4 mg tablet 16 00:00: 00 Yes [id number] 1 or 2 tablets every 8 hours as needed for nausea [facility] acute [facility] valACYclovi r 1 gram tablet 09-06 00:00: 00 09-21 04:59 :00 No [id number] 1g Take 1 tablet by mouth in the morning and 1 tablet at noon and 1 tablet in the evening. Do all this for 14 days. [facility] acute hospital predniSONE 20 mg tablet 09-06 00:00: 00 09-14 04:59 :00 No [id number] 40mg Take 2 tablets by mouth in the morning for 7 days. [facility] acute hospital TAKE 2 TABLETS BY MOUTH ON DAY 1, AND THEN TAKE 1 TABLET BY MOUTH ONCE A DAY ON DAY 2 THROUGH DAY 5 2022-06 00:00: 00 Yes Pop Camejo TAKE 1 TABLET BY MOUTH ONCE DAILY FOR 5 DAYS 2022-06 00:00: 00 Yes Pop Camejo TAKE 10 ML EVERY 4-6 HOURS NEEDED FOR COUGH AND CONGESTION 2022-06 00:00: 00 07-24 00:00 :00 No [id number] Pop Camejo TAKE 1 TABLET DAILY. 11-17 00:00: 00 07-24 00:00 :00 No 48 Pop Camejo TAKE 1 TABLET DAILY. 11-15 00:00: 00 07-24 00:00 :00 No 40 Pop Camejo TAKE 1 TABLET BY MOUTH TWICE A DAY 11-15 00:00: 00 07-24 00:00 :00 No 1 Pop Camejo TAKE 1 TABLET EVERY 12 HOURS DAILY. 11-15 00:00: 00 07-24 00:00 :00 No 1000 Pop Camejo TAKE 1 TABLET BY MOUTH TWICE DAILY 30 MINUTES BEFORE MORNING AND EVENING MEALS 2021-06 2 00:00: 00 Yes Pop Camejo TAKE 1 TABLET BY MOUTH TWICE DAILY WITH MEALS 2021-06 00:00: 00 Yes Pop Camejo TAKE 1 TABLET BY MOUTH TWICE DAILY FOR 14 DAYS 2021-06 00:00: 00 Yes Pop Camejo TAKE 1 TABLET BY MOUTH EVERY 8 HOURS NEEDED 2021-06 00:00: 00 Yes Pop Camejo Dose Unknown 2021-06 0-05 00:00: 00 Yes Pop Camejo Dose Unknown 8-08 00:00: 00 Yes Pop Camejo Dose Unknown 0 8-08 00:00: 00 Yes Pop Camejo Dose Unknown 0 8-08 00:00: 00 Yes Pop Camejo metformin 1,000 mg tablet 14 00:00: 00 Yes 1mg Pop Camejo Dose Unknown 0 6-14 00:00: 00 Yes Pop Camejo Dose Unknown 14 00:00: 00 Yes Pop Camejo Dose Unknown 23 00:00: 00 Yes Pop Camejo metformin 500 mg tablet 22 00:00: 00 Yes 1mg Pop Camejo Dose Unknown 22 00:00: 00 Yes Pop Camejo atorvastati n 40 mg tablet 22 00:00: 00 Yes 1mg Pop Camejo Vitamin D2 1,250 mcg (50,000 unit) capsule 11-12 00:00: 00 Yes 1(50,00 0 unit) Pop Camejo Dose Unknown 11-12 00:00: 00 Yes Pop Camejo Dose Unknown -21 00:00: 00 Yes Pop Camejo Dose Unknown -19 00:00: 00 Yes Pop Camejo Dose Unknown 0 -18 00:00: 00 Yes Pop Camejo Dose Unknown 0 -18 00:00: 00 Yes Pop Camejo Ciprodex 0.3 %-0.1 % ear drops,suspe nsion -12 00:00: 00 Yes 3% Pop Camejo amoxicillin 875 mg tablet 11-02 00:00: 00 Yes 1mg Pop Camejo omeprazole 20 mg capsule,del ayed release 11-02 00:00: 00 Yes 1mg Pop Camejo Vital Signs Vital Name Observation Time Observation Value Comments S elroy Systolic blood pressure 2023-09-07 21:18:00 121 mm[Hg] Kingsley o [facility] Diastolic blood pressure 2023-09-07 21:18:00 87 mm[Hg] Kingsley o [facility] Heart rate 2023-09-07 21:18:00 115 /min [facility] Body temperature 2023-09-07 21:18:00 37.61 Clare [facility] Respiratory rate 2023-09-07 21:18:00 16 /min [facility] Body height 2023-09-07 21:18:00 165.1 cm [facility] Body weight 2023-09-07 21:18:00 79.379 kg [facility] BMI 2023-09-07 21:18:00 29.12 kg/m2 [facility] Oxygen saturation in Arterial blood by Pulse oximetry 2023-09-07 21:18:00 96 /min Kingsley o [facility] BP Systolic 2023-12-16 10:58:00 133 mm[Hg] El hen Kenna Camejo BP Diastolic 2023-12-16 10:58:00 90 mm[Hg] Anatoliy Camejo Weight Measured 2023-12-16 10:58:00 175.20 pounds Pop Camejo Height Measured 2023-12-16 10:58:00 65.75 inches Pop Camejo Body Temperature 2023-12-16 10:58:00 98.00 degrees Pop Camejo Heart Rate 2023-12-16 10:58:00 72.00 /min Isabelle en F Bashir Respiratory Rate 2023-12-16 10:58:00 16.00 /min Pop Camejo Body Temperature 2023-12-10 08:30:00 97.30 degrees Popxiao Camejo Heart Rate 2023-12-10 08:30:00 101.00 /min Step hen F Bashir Respiratory Rate 2023-12-10 08:30:00 Pop F Bashir BP Systolic 2023-12-10 08:30:00 121 mm[Hg] Step hen F Bashir BP Diastolic 2023-12-10 08:30:00 87 mm[Hg] Anatoliy phen F Bashir Weight Measured 2023-12-10 08:30:00 170.60 pounds Pop F Bashir Height Measured 2023-12-10 08:30:00 65.75 inches Pop F Bashir BP Systolic 2023-06-10 14:02:00 103 mm[Hg] Step hen F Bashir BP Diastolic 2023-06-10 14:02:00 78 mm[Hg] Anatoliy phen F Bashir Weight Measured 2023-06-10 14:02:00 174.00 pounds Pop F Bashir Height Measured 2023-06-10 14:02:00 65.75 inches Pop F Bashir Body Temperature 2023-06-10 14:02:00 97.60 degrees Pop F Bashir Heart Rate 2023-06-10 14:02:00 87.00 /min Isabelle en F Bashir Respiratory Rate 2023-06-10 14:02:00 Pop F Bashir BP Systolic 2022-11-15 15:29:00 124 mm[Hg] Step hen F Bashir BP Diastolic 2022-11-15 15:29:00 77 mm[Hg] Anatoliy phen F Bashir Weight Measured 2022-11-15 15:29:00 177.80 pounds Pop F Bashir Height Measured 2022-11-15 15:29:00 65.75 inches Pop F Bashir Body Temperature 2022-11-15 15:29:00 97.30 degrees Pop F Bashir Heart Rate 2022-11-15 15:29:00 70.00 /min Isabelle en F Bashir Respiratory Rate 2022-11-15 15:29:00 Pop F Bashir BP Systolic 2022-01-29 16:35:00 118 mm[Hg] Step hen F Bashir BP Diastolic 2022-01-29 16:35:00 74 mm[Hg] Anatoliy phen F Bashir Weight Measured 2022-01-29 16:35:00 184.90 pounds Pop F Bashir Height Measured 2022-01-29 16:35:00 65.75 inches Pop F Bashir Body Temperature 2022-01-29 16:35:00 97.30 degrees Pop F Bashir Heart Rate 2022-01-29 16:35:00 76.00 /min Isabelle en F Bashir Respiratory Rate 2022-01-29 16:35:00 Pop F Bashir BP Systolic 2021-12-05 15:05:00 107 mm[Hg] Step hen F Bashir BP Diastolic 2021-12-05 15:05:00 75 mm[Hg] Anatoliy phen F Bashir Weight Measured 2021-12-05 15:05:00 181.80 pounds Pop F Bashir Height Measured 2021-12-05 15:05:00 65.75 inches Pop F Bashir Body Temperature 2021-12-05 15:05:00 98.20 degrees Pop F Bashir Heart Rate 2021-12-05 15:05:00 97.00 /min Isabelle en F Bashir Respiratory Rate 2021-12-05 15:05:00 17.00 /min Pop F Bashir BP Systolic 2021-11-08 15:02:00 116 mm[Hg] Step hen F Bashir BP Diastolic 2021-11-08 15:02:00 75 mm[Hg] Anatoliy phen F Bashir Weight Measured 2021-11-08 15:02:00 178.20 pounds Pop F Bashir Height Measured 2021-11-08 15:02:00 65.75 inches Pop F Bashir Body Temperature 2021-11-08 15:02:00 98.30 degrees Pop F Bashir Heart Rate 2021-11-08 15:02:00 69.00 /min Isabelle en F Bashir Respiratory Rate 2021-11-08 15:02:00 21.00 /min Pop F Bashir BP Systolic 2021-11-02 15:31:00 118 mm[Hg] Step hen F Bashir BP Diastolic 2021-11-02 15:31:00 79 mm[Hg] Anatoliy phen F Bashir Weight Measured 2021-11-02 15:31:00 181.40 pounds Pop F Bashir Height Measured 2021-11-02 15:31:00 65.75 inches Pop F Bashir Body Temperature 2021-11-02 15:31:00 97.80 degrees Pop F Bashir Heart Rate 2021-11-02 15:31:00 79.00 /min Isabelle en F Bashir Respiratory Rate 2021-11-02 15:31:00 Pop F Bashir Procedures Procedure Date / Time Performed Performing Clinicia n Source ASSIGNMENT OF BENEFITS 2023-09-07 21:55:37 Docto r Unassigned, [place] [facility] CONSENT/REFUSAL FOR DIAGNOSIS AND TREATMENT 2023-09-07 21:26:28 Doctor Unassigned, [place] [facility] Encounters Start Date/Time End Date/Time Encounter Type Admission Type Attending [facility] Care Department Encounter ID Source 2023-12-16 10:52:47 2023-12-16 10:52:47 Outpatient [facility] [id number] Pop Camejo 2023-12-16 00:00:00 2023-12-16 00:00:00 Outpatient Visit [id number] Pop Camejo 2023-12-10 08:23:30 2023-12-10 08:23:30 Outpatient [facility] [id number] Pop Camejo 2023-12-10 00:00:00 2023-12-10 00:00:00 Outpatient Visit [id number] Pop Camejo 2023-09-07 16:20:00 2023-09-07 17:05:00 Emergency X BISHOP PURI [facility] ERT [id number] General acute hospital 2023-09-07 16:20:00 2023-09-07 17:05:00 Emergency Bishop Puri [facility] [id number] General acute hospital 2023-06-10 13:56:00 2023-06-10 13:56:00 Outpatient [facility] [id number] Pop Camejo 2022-11-16 10:55:12 2022-11-16 10:55:12 Outpatient [facility] [id number] Pop Pierson Bashir Results Test Description Test Time Test Comments Results Result Co mments Source Pop CamejoLIPID [id number] 00:00:00* Test Item Value Reference Range Interpretation Comme nts CHOLESTEROL (test code = 2210) 164 MG/DL TRIGLYCERIDES (test code = 2232) 487 MG/DL HDL CHOLESTEROL (test code = 2220) 29 MG/DL CALC LDL CHOL (test code = 2237) (NOTE) MG/DL RISK RATIO LDL/HDL (test cod e = 2238) (NOTE) RATIO Pop CamejoCOMPREHENSIVE METABOLIC [id number] 00:00:00* Test Item Value Reference Range Interpretation Comme nts GLUCOSE (test code = 2217) 240 MG/DL BUN (test code = 2208) 21 MG/DL CREATININE (test code = 2214) 1.00 MG/DL eGFR (2020 CKD-EPI) (test co de = 66289) 82 ML/MIN/1.73 CALC BUN/CREAT (test code = 2235) 21 RATIO SODIUM (test code = 2231) 137 MEQ/L POTASSIUM (test code = 2228) 4.7 MEQ/L CHLORIDE (test code = 2215) 103 MEQ/L CARBON DIOXIDE (test code = 2206) 24 MEQ/L CALCIUM (test code = 2209) 9.9 MG/DL PROTEIN, TOTAL (test code = 2229) 7.2 G/DL ALBUMIN (test code = 2201) 4.6 G/DL CALC GLOBULIN (test code = 2240) 2.6 G/DL CALC A/G RATIO (test code = 2234) 1.8 RATIO BILIRUBIN, TOTAL (test code = 2207) 0.7 MG/DL ALKALINE PHOSPHATASE (test code = 2204) 106 U/L AST (test code = 2218) 19 U/L ALT (test code = 2219) 28 U/L Pop CamejoVITAMIN D, 25 [id number] 00:00:00* Test Item Value Reference Range Interpretation Comme nts VITAMIN D, 25 OH (test code = 4958) 30 NG/ML Pop CamejoHEMOGLOBIN [id number] 00:00:00* Test Item Value Reference Range Interpretation Comme nts HEMOGLOBIN A1c (test code = 88926) 11.1 % Pop CamejoLIPID [id number] 00:00:00* Test Item Value Reference Range Interpretation Comme nts CHOLESTEROL (test code = 2210) 164 MG/DL TRIGLYCERIDES (test code = 2232) 487 MG/DL HDL CHOLESTEROL (test code = 2220) 29 MG/DL CALC LDL CHOL (test code = 2237) (NOTE) MG/DL RISK RATIO LDL/HDL (test cod e = 2238) (NOTE) RATIO Pop CamejoCOMPREHENSIVE METABOLIC [id number] 00:00:00* Test Item Value Reference Range Interpretation Comme nts GLUCOSE (test code = 2217) 240 MG/DL BUN (test code = 2208) 21 MG/DL CREATININE (test code = 2214) 1.00 MG/DL eGFR (2020 CKD-EPI) (test co de = 34389) 82 ML/MIN/1.73 CALC BUN/CREAT (test code = 2235) 21 RATIO SODIUM (test code = 2231) 137 MEQ/L POTASSIUM (test code = 2228) 4.7 MEQ/L CHLORIDE (test code = 2215) 103 MEQ/L CARBON DIOXIDE (test code = 2206) 24 MEQ/L CALCIUM (test code = 2209) 9.9 MG/DL PROTEIN, TOTAL (test code = 2229) 7.2 G/DL ALBUMIN (test code = 2201) 4.6 G/DL CALC GLOBULIN (test code = 2240) 2.6 G/DL CALC A/G RATIO (test code = 2234) 1.8 RATIO BILIRUBIN, TOTAL (test code = 2207) 0.7 MG/DL ALKALINE PHOSPHATASE (test code = 2204) 106 U/L AST (test code = 2218) 19 U/L ALT (test code = 2219) 28 U/L Pop CamejoVITAMIN D, 25 [id number] 00:00:00* Test Item Value Reference Range Interpretation [facility]me [facility] V[facility] D, 25 OH (test code = 4958) 30 NG/ML Pop CamejoHEMOGLOBIN [id number] 07:14:29* Test Item Value Reference Range Interpretation Comme [facility] HEMOGLOBIN A1c (test code = 55879) 12.9 % 4.2-5.6 H CYPRIOT DIABETE S ASSOCIATION GUIDELINES FOR HGB A1C: PREDIABETES/INCREASED RISK . . . . . . . 5.7-6.4% DIAGNOSIS OF DIABETES . . . . . . . . . >=6.5% WITH CONFIRMATION OR APPROPRIATE SYMPTOMS NOTE: ASSAY MAY BE AFFECTED BY HEMOGLOBINOPATHIES (SICKLE CELL ANEMIA, S-C DISEASE, OTHERS) OR ARTIFICIALLY LOWERED BY DECREASED RED CELL SURVIVAL (HEMOLYTIC ANEMIAS, BLOOD LOSS, ETC.). CONSIDER ALTERNATE TESTING OR LABORATORY CONSULTATION. HEMOGLOBIN [id number] 00:00:00* Test Item Value Reference Range Interpretation Comme nts HEMOGLOBIN A1c (test code = 91367) 12.9 % Pop Pierson AustinHEMOGLOBIN [id number] 00:00:00* Test Item Value Reference Range Interpretation Comme nts HEMOGLOBIN A1c (test code = 48948) 12.9 % Pop CamejoCBC W/AUTO DIFF WITH [id number] 17:56:49* Test Item Value Reference Range Interpretation Comme nts WBC (test code = 1001) 8.4 K/UL 3.5-11.0 RBC (test code = 1002) 6.14 M/UL 4.50-6.10 H HEMOGLOBIN (test code = 1003) 18.8 G/DL 13.5-17.0 H HEMATOCRIT (test code = 1004) 54.3 % 40.0-51.0 H MCV (test code = 1005) 88.4 fL 80.0-99.0 MCH (test code = 1006) 30.6 PG 25.0-33.0 MCHC (test code = 1007) 34.6 G/DL 31.0-36.0 RDW (test code = 1038) 14.4 % 11.5-15.0 NEUTROPHILS (test code = 1008) 62.0 % LYMPHOCYTES (test code = 1010) 31.1 % MONOCYTES (test code = 1011) 4.2 % EOSINOPHILS (test code = 1012) 1.3 % BASOPHILS (test code = 1013) 1.0 % IMMATURE GRANULOCYTES (test code = 1036) 0.4 % NUCLEATED RBCS (test code = 1065) 0.0 /100 WBC'S See_Comment [Automated [employer]] The system which generated this result transmitted reference range: 0.0. The reference range was not used to interpret this result as normal/abnormal. PLATELET COUNT (test code = 1015) 345 K/UL 130-400 ABSOLUTE NEUTROPHILS (test code = 1066) 5.21 K/UL 1.50-7.50 ABSOLUTE LYMPHOCYTES (test code = 1067) 2.61 K/UL 1.00-4.00 ABSOLUTE MONOCYTES (test code = 1068) 0.35 K/UL 0.20-1.00 ABSOLUTE EOSINOPHILS (test code = 1040) 0.11 K/UL 0.00-0.50 ABSOLUTE BASOPHILS (test code = 1069) 0.08 K/UL 0.00-0.20 ABS IMMATURE GRANULOCYTES (test code = 1020) 0.03 K/UL 0.00-0.10 ABS NUCLEATED RBCS (test code = 68219) 0.00 K/UL 0.00-0.11 VITAMIN D, 25 [id number] 08:53:51* Test Item Value Reference Range Interpretation Comme nts VITAMIN D, 25 OH (test code = 4958) 10 NG/ML SEE BELOW L NOTE: 25-HYDR OXYVITAMIN D ASSAY INCLUDES 25-HYDROXYVITAMIN D2 AND D3. METHODOLOGY IS CHEMILUMINESCENT IMMUNOASSAY. INTERPRETIVE RANGES PEDIATRIC (<17 YEARS) . . . . . . . . . . . NG/ML 20-100ADULT: INSUFFICIENT . . . . . . . . . . . . . . NG/ML <20 SUBOPTIMAL . . . . . . . . . . . . . . . NG/ML 20-29 OPTIMAL . . . . . . . . . . . . . . . . . NG/ML 30-100 UNLESS OTHERWISE INDICATED, ALL TESTING PERFORMED [facility] [address] [place] [address] BRAKE MECHANIC: LORNA TORRES M.D. CLIA NUMBER [id number] [facility] [place]. [id number] COMPREHENSIVE METABOLIC [id number] 08:09:19* Test Item Value Reference Range Interpretation Comme nts GLUCOSE (test code = 2217) 259 MG/DL 70-99 H BUN (test code = 2208) 17 MG/DL 8-23 CREATININE (test code = 2214) 0.94 MG/DL 0.80-1.40 eGFR (2020 CKD-EPI) (test code = 19459) 89 ML/MIN/1.73 >60 CALC BUN/CREAT (test code = 2235) 18 RATIO 6-28 SODIUM (test code = 2231) 135 MEQ/L 133-146 POTASSIUM (test code = 2228) 4.9 MEQ/L 3.5-5.4 CHLORIDE (test code = 2215) 98 MEQ/L 95-107 CARBON DIOXIDE (test code = 6) 27 MEQ/L 19-31 CALCIUM (test code = 2208) 9.8 MG/DL 8.5-10.5 PROTEIN, TOTAL (test code = 2228) 6.9 G/DL 6.1-8.3 ALBUMIN (test code = 1) 4.6 G/DL 3.5-5.2 CALC GLOBULIN (test code = 2240) 2.3 G/DL 1.9-3.7 CALC A/G RATIO (test code = 2234) 2.0 RATIO 1.0-2.6 BILIRUBIN, TOTAL (test code = 2206) 0.3 MG/DL See_Comment [Automated me ssage] The system which generated this result transmitted reference range: <=1.2. The reference range was not used to interpret this result as normal/abnormal. ALKALINE PHOSPHATASE (test code = 2203) 122 U/L 40-125 AST (test code = 2217) 43 U/L 9-50 ALT (test code = 2218) 37 U/L 5-50 LIPID [id number] 08:09:19* Test Item Value Reference Range Interpretation Comme nts CHOLESTEROL (test code = 0) 377 MG/DL <200 H TRIGLYCERIDES (test code = 2232) 2918 MG/DL <150 H RESULTS RECHECKE D AND VERIFIED HDL CHOLESTEROL (test code = 2219) 19 MG/DL >39 L CALC LDL CHOL (test code = 7) (NOTE) MG/DL <100 UNABLE TO CALCUL ATE A VALID LDL CHOLESTEROL WHEN THE TRIGLYCERIDEVALUE IS GREATER THAN 400 MG/DL.UNABLE TO CALCULATE A VALID LDL CHOLESTEROL WHEN THE TRIGLYCERIDEVALUE IS GREATER THAN 400 MG/DL. NOTE: CALCULATED LDL IS BASED ON VERN-GALLARDO METHOD WHICHINCLUDES ADJUSTABLE TRIGLYCERIDE:VLDL CHOLESTEROL RATIO.THIS FACTOR VARIES BY MEASURED TRIGLYCERIDE AND NON-HDLCHOLESTEROL CONCENTRATIONS WITH INCREASED CALCULATED LDL SEENIN HIGHER TRIGLYCERIDE OR LOWER NON-HDL SPECIMENS. FOR MOREINFORMATION, SEE CLIENT ANNOUNCEMENT AT [email or web address] CalcLDL-C RISK RATIO LDL/HDL (test code = 223) (NOTE) RATIO <3.55 UNABLE TO GISELLA CULATE PSA, [id number] 06:45:41* Test Item Value Reference Range Interpretation Comme nts PSA, TOTAL (test code = 2606) 0.84 NG/ML See_Comment NOTE: Methodolog y is Blaise Sharri Electrochemiluminescence Immunoassay traceable to WHO reference standard 96/760. [Automated message] The system which generated this result transmitted reference range: <=4.00. The reference range was not used to interpret this result as normal/abnormal. CBC W/AUTO [id number] 00:00:00* Test Item Value Reference Range Interpretation Comme nts WBC (test code = 1001) 8.4 K/UL RBC (test code = 1002) 6.14 M/UL HEMOGLOBIN (test code = 1003) 18.8 G/DL HEMATOCRIT (test code = 1004) 54.3 % MCV (test code = 1005) 88.4 fL MCH (test code = 1006) 30.6 PG MCHC (test code = 1007) 34.6 G/DL RDW (test code = 1038) 14.4 % NEUTROPHILS (test code = 1008) 62.0 % LYMPHOCYTES (test code = 1010) 31.1 % MONOCYTES (test code = 1011) 4.2 % EOSINOPHILS (test code = 1012) 1.3 % BASOPHILS (test code = 1013) 1.0 % IMMATURE GRANULOCYTES (test code = 1036) 0.4 % NUCLEATED RBCS (test code = 1065) 0.0 /100WBC'S PLATELET COUNT (test code = 1015) 345 K/UL ABSOLUTE NEUTROPHILS (test c ode = 1066) 5.21 K/UL ABSOLUTE LYMPHOCYTES (test c ode = 1067) 2.61 K/UL ABSOLUTE MONOCYTES (test cod e = 1068) 0.35 K/UL ABSOLUTE EOSINOPHILS (test c ode = 1040) 0.11 K/UL ABSOLUTE BASOPHILS (test cod e = 1069) 0.08 K/UL ABS IMMATURE GRANULOCYTES (t est code = 1020) 0.03 K/UL ABS NUCLEATED RBCS (test cod e = 01617) 0.00 K/UL Pop CamejoCOMPREHENSIVE METABOLIC [id number] 00:00:00* Test Item Value Reference Range Interpretation Comme nts GLUCOSE (test code = 2217) 259 MG/DL BUN (test code = 2208) 17 MG/DL CREATININE (test code = 2214) 0.94 MG/DL eGFR (2020 CKD-EPI) (test co de = 34260) 89 ML/MIN/1.73 CALC BUN/CREAT (test code = 2235) 18 RATIO SODIUM (test code = 2231) 135 MEQ/L POTASSIUM (test code = 2228) 4.9 MEQ/L CHLORIDE (test code = 2215) 98 MEQ/L CARBON DIOXIDE (test code = 2206) 27 MEQ/L CALCIUM (test code = 2209) 9.8 MG/DL PROTEIN, TOTAL (test code = 2229) 6.9 G/DL ALBUMIN (test code = 2201) 4.6 G/DL CALC GLOBULIN (test code = 2240) 2.3 G/DL CALC A/G RATIO (test code = 2234) 2.0 RATIO BILIRUBIN, TOTAL (test code = 2207) 0.3 MG/DL ALKALINE PHOSPHATASE (test code = 2204) 122 U/L AST (test code = 2218) 43 U/L ALT (test code = 2219) 37 U/L Pop CamejoLIPID [id number] 00:00:00* Test Item Value Reference Range Interpretation Comme nts CHOLESTEROL (test code = 2210) 377 MG/DL TRIGLYCERIDES (test code = 2232) 2918 MG/DL HDL CHOLESTEROL (test code = 2220) 19 MG/DL CALC LDL CHOL (test code = 2237) (NOTE) MG/DL RISK RATIO LDL/HDL (test cod e = 2238) (NOTE) RATIO Pop CamejoPSA, [id number] 00:00:00* Test Item Value Reference Range Interpretation Comme [facility] PSA, TOTAL (test code = 2606) 0.84 NG/ML Pop CamejoVITAMIN D, 25 [id number] 00:00:00* Test Item Value Reference Range Interpretation Comme [facility] VITAMIN D, 25 OH (test code = 4958) 10 NG/ML Pop CamejoCBC W/AUTO [id number] 00:00:00* Test Item Value Reference Range Interpretation Comme nts WBC (test code = 1001) 8.4 K/UL RBC (test code = 1002) 6.14 M/UL HEMOGLOBIN (test code = 1003) 18.8 G/DL HEMATOCRIT (test code = 1004) 54.3 % MCV (test code = 1005) 88.4 fL MCH (test code = 1006) 30.6 PG MCHC (test code = 1007) 34.6 G/DL RDW (test code = 1038) 14.4 % NEUTROPHILS (test code = 1008) 62.0 % LYMPHOCYTES (test code = 1010) 31.1 % MONOCYTES (test code = 1011) 4.2 % EOSINOPHILS (test code = 1012) 1.3 % BASOPHILS (test code = 1013) 1.0 % IMMATURE GRANULOCYTES (test code = 1036) 0.4 % NUCLEATED RBCS (test code = 1065) 0.0 /100WBC'S PLATELET COUNT (test code = 1015) 345 K/UL ABSOLUTE NEUTROPHILS (test c ode = 1066) 5.21 K/UL ABSOLUTE LYMPHOCYTES (test c ode = 1067) 2.61 K/UL ABSOLUTE MONOCYTES (test cod e = 1068) 0.35 K/UL ABSOLUTE EOSINOPHILS (test c ode = 1040) 0.11 K/UL ABSOLUTE BASOPHILS (test cod e = 1069) 0.08 K/UL ABS IMMATURE GRANULOCYTES (t est code = 1020) 0.03 K/UL ABS NUCLEATED RBCS (test cod e = 64417) 0.00 K/UL Pop F BashirCOMPREHENSIVE METABOLIC [id number] 00:00:00* Test Item Value Reference Range Interpretation Comme nts GLUCOSE (test code = 2217) 259 MG/DL BUN (test code = 2208) 17 MG/DL CREATININE (test code = 2214) 0.94 MG/DL eGFR (2020 CKD-EPI) (test co de = 25693) 89 ML/MIN/1.73 CALC BUN/CREAT (test code = 2235) 18 RATIO SODIUM (test code = 2231) 135 MEQ/L POTASSIUM (test code = 2228) 4.9 MEQ/L CHLORIDE (test code = 2215) 98 MEQ/L CARBON DIOXIDE (test code = 2206) 27 MEQ/L CALCIUM (test code = 2209) 9.8 MG/DL PROTEIN, TOTAL (test code = 2229) 6.9 G/DL ALBUMIN (test code = 2201) 4.6 G/DL CALC GLOBULIN (test code = 2240) 2.3 G/DL CALC A/G RATIO (test code = 2234) 2.0 RATIO BILIRUBIN, TOTAL (test code = 2207) 0.3 MG/DL ALKALINE PHOSPHATASE (test code = 2204) 122 U/L AST (test code = 2218) 43 U/L ALT (test code = 2219) 37 U/L Pop CamejoLIPID [id number] 00:00:00* Test Item Value Reference Range Interpretation Comme nts CHOLESTEROL (test code = 2210) 377 MG/DL TRIGLYCERIDES (test code = 2232) 2918 MG/DL HDL CHOLESTEROL (test code = 2220) 19 MG/DL CALC LDL CHOL (test code = 2237) (NOTE) MG/DL RISK RATIO LDL/HDL (test cod e = 2238) (NOTE) RATIO Pop CamejoPSA, [id number] 00:00:00* Test Item Value Reference Range Interpretation Comme nts PSA, TOTAL (test code = 2606) 0.84 NG/ML Pop CamejoVITAMIN D, 25 [id number] 00:00:00* Test Item Value Reference Range Interpretation Comme nts VITAMIN D, 25 OH (test code = 4958) 10 NG/ML Pop Camejo Notes Date/Time Note Provider Source Pop Camejo [facility]2024-06-18 00:00:00 Plan Activity Low fat, low sugar, low sodi um, low cholesterol diet and exercise 4 or 5 times a week for 30 min/day 2021-11-02 healthy diet and excercise 2021-11-02 healthy diet and excercise 2021-11-02 Will treat to r/o GERD Possible H pylori in 2 weeks 2021-11-02 amoxicillin 875mg 1 tablet by mouth BID for 10 days 2021-11-02 Overweight Full panel labs ordered, pending results, pending results Dental referral made Educated pt. to go to [facility] for general eye exam 2021-11-08 Strep Negative Declines covid testing Rx - Viscous Lidocaine Q4 swish and spit Support care as discussed. Rest, fluids, medications as prescribed, supportive care including over the counter medications for fever such as Tylenol and Motrin, hand hygiene to prevent spread of infection, discard toothbrush after 10 days of antibiotics, so bacteria are not reintroduced. Avoid coughing, kissing, sharing drinks/food. F/U with as needed. 2022-01-29 Encourage healthy diet, increase exercis e and watch weight. 2022-11-15 CMP A1C DIABETIC EYE EXAM DIABETIC FOOT EXAM metformin 1000 mg bid glimeperide 1 mg bid 2022-11-15 LIPID-FASTING atorvastatin 40 mg qd 2022-11-15 VITAMIN D 2022-11-15 PCV 20 VIS PROVIDED S/E with administration of vaccines explained to pt. 2022-11-15 COVID, FLU, RSV Bromfed take as directed If positive for covid regardless of vaccination status- Isolate for 5 days. If you have no symptoms or your symptoms are resolving after 5 days, you can leave your house. Continue to wear a well-fitting mask around others for 5 additional days If you have a fever, continue to stay home until your fever resolves. If you were exposed: Have been booster OR Completed the primary series of Pfizer of Moderna vaccine within the last 6 months OR Completed the primary series of J&J vaccine within the last 2 months---- wear a mask around others for 10 days; test on day 5 , if possible, If you develop symptoms, get a test and stay home. IF you were exposed: Completed the primary series of Pfizer or Moderna vaccine over 6 months ago and are not boosted OR Completed the primary series of J&J over 2 months ago and are not boosted OR are unvaccinated---Stay home for 5 days, AFter that continue to wear a well-fitting mask around others for 5 additional days, If you can't quarantine you must wear a well- fiiting mask for 10 days. Test on day 5 if possible. If you develop symptoms, get a test and stay home, 2023-06-10 COVID, FLU, RSV, If positive for covid regardless of vaccination status- Isolate for 5 days. If you have no symptoms or your symptoms are resolving after 5 days, you can leave your house. Continue to wear a well-fitting mask around others for 5 additional days If you have a fever, continue to stay home until your fever resolves. If you were exposed: Have been booster OR Completed the primary series of Pfizer of Moderna vaccine within the last 6 months OR Completed the primary series of J&J vaccine within the last 2 months---- wear a mask around others for 10 days; test on day 5 , if possible, If you develop symptoms, get a test and stay home. IF you were exposed: Completed the primary series of Pfizer or Moderna vaccine over 6 months ago and are not boosted OR Completed the primary series of J&J over 2 months ago and are not boosted OR are unvaccinated---Stay home for 5 days, AFter that continue to wear a well-fitting mask around others for 5 additional days, If you can't quarantine you must wear a well- fiiting mask for 10 days. Test on day 5 if possible. If you develop symptoms, get a test and stay home, 2023-06-10 Shingles treatment is manage d with administration of oral anti-viral medications and may also be prescribed medication, such as gabapentin, for the neuropathic pain /irritation. May use OTC topical lotion such as Capsaicin. Additionally you may try wet compresses or take warm oatmeal baths that may help relieve itching. RX: Gabapentin sent today 2023-12-10 To prevent spread of the vir us to others: keep the rash covered; avoid scratching or touching the rash o prevent spreading the virus to others: wash hands frequently; avoid contact with anyone hwo has not had chickenpox of the chicken pox vaccine, premature infants; those contacts who have weakened immune systems. Shingles treatment is managed with administration of oral anti-viral medications and may also be prescribed medication, such as gabapentin, for the neuropathic pain /irritation. May use OTC topical lotion such as Capsaicin. Additionally you may try wet compresses or take warm oatmeal baths that may help relieve itching. RX: acyclovir sent today 2023-12-10 [facility]23 Written/verbal d/c instructions, out of er no distress Yanique Pearl [id number] 16:18:02 Patient states: "I have shingles" Pulls up shirt and shows rash over right breast. [id number]00 Images from the original note were not included. [facility] Emergency Department Note Patient Name: Betty Rosario Date of : 1955 68 year old male Treatment Room: Room/bed info not found Primary Care Physician: No primary care provider on file. Patient Escorted by: Family [5] Mode of Arrival: Personal means [1] EMS Treatment Prior to ED Arrival: [employer] REPAIRER treatment: Medication (comment) [employer] REPAIRER treatment comments: icy hot, and tylenol Travel and Exposure Screening: Symptoms Does patient have any of these symptoms?: (not recorded) Exposure Screening Has patient had contact with someone with a communicable disease in the last month?: (not recorded) Diseases exposed to:: (not recorded) Is Patient ?: (not recorded) Exposure Date: (not recorded) Chief Complaint: Chief Complaint Patient presents with Rash History of Present Illness: Onset 09/01 with itching and burning sensation to right lateral chest wall. Now with couple days of rash. No discharge. No bleeding. No wound. No injury. No fever. 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 No pertinent past medical history. Tetanus received in last 5 years: No Allergies: No Known Allergies Past Social History: Substance & Sexual Activity No substance use or sexual activity history on file. Past Surgical History: History reviewed. No pertinent surgical history. Review of Systems: Review of Systems Constitutional: Negative. HENT: Negative. Eyes: Negative. Respiratory: Negative. Cardiovascular: Negative. Gastrointestinal: Negative. Genitourinary: Negative. Musculoskeletal: Negative. Skin: Positive for rash. Neurological: Negative. Psychiatric/Behavioral: Negative. Physical Exam: ED Triage Vitals [09/07/23 1618] Weight 79.4 kg (175 lb) Actual or estimated Estimated by patient/family report Height 1.651 m (5' 5") BP 121/87 Pulse 115 Resp 16 Temp 37.6 ?C (99.7 ?F) Temp source Oral SpO2 96 % Measured on Room air Physical Exam Vitals and nursing note reviewed. Constitutional: General: He is not in acute distress. Appearance: Normal appearance. He is not ill-appearing, toxic-appearing or diaphoretic. HENT: Head: Normocephalic and atraumatic. Right Ear: External ear normal. Left Ear: External ear normal. Nose: Nose normal. Mouth/Throat: Mouth: Mucous membranes are moist. Eyes: Extraocular Movements: Extraocular movements intact. Conjunctiva/sclera: Conjunctivae normal. Cardiovascular: Rate and Rhythm: Tachycardia present. Pulmonary: Effort: No respiratory distress. Abdominal: General: There is no distension. Musculoskeletal: General: No signs of injury. Normal range of motion. Cervical back: Normal range of motion. Skin: Findings: Rash (dermatomal rash, see picture) present. Neurological: General: No focal deficit present. Mental Status: He is alert. Psychiatric: Mood and Affect: Mood normal. Behavior: Behavior normal. Thought Content: Thought content normal. Judgment: Judgment normal. Radiology: No orders to display Lab Results: Lab Results - No data to display EKG: If EKG completed, see Procedure Note. Orders and Treatments: No orders of the defined types were placed in this encounter. Orders Placed This Encounter Medications valACYclovir 1 gram tablet predniSONE 20 mg tablet traMADoL 50 mg tablet ondansetron 4 mg tablet First Provider Eval: ED Events Date/Time Event User Comments 09/07/23 1619 Medical Screening Begins BISHOP PURI MD -- 09/07/23 1619 First Provider Evaluation BISHOP PURI MD -- ED COURSE Diagnosis/Impression as of 09/07/23 1650 Herpes zoster without complication Procedures: Procedures MDM: Medical Decision Making Primary impression: shingles Differential Diagnoses, including but not limited to: cellulitis, shingles Problems Addressed: Herpes zoster without complication: acute illness or injury Amount and/or Complexity of Data Reviewed Independent Historian: spouse Details: Self, spouse External Data Reviewed: Details: N/a Labs: Details: N/a Radiology: Details: N/a ECG/medicine tests: Details: N/a Discussion of management or test interpretation with external provider(s): N/a Risk OTC drugs. Prescription drug management. Risk Details: Unremarkable OBS in ED. Findings and plan discussed with patient. No findings that require acute hospitalization today. Flowsheet Documentation: Scoring Tools: No data recorded Disposition/Condition: ED Disposition ED Disposition Disch - Home Condition Stable Comment -- Discharge Medications: Patient's Medications START taking these medications ONDANSETRON 4 MG TABLET 1 or 2 tablets every 8 hours as needed for nausea PREDNISONE 20 MG TABLET Take 2 tablets by mouth in the morning for 7 days. TRAMADOL 50 MG TABLET Take 1 tablet by mouth every 6 (six) hours as needed (pain). Indications: acute pain VALACYCLOVIR 1 GRAM TABLET Take 1 tablet by mouth in the morning and 1 tablet at noon and 1 tablet in the evening. Do all this for 14 days. CONTINUE taking these medications which have NOT CHANGED No medications on file START taking Modified Medications as Prescribed No medications on file STOP taking these medications No medications on file Follow-up: PCP Electronically signed by: Bishop Puri MD 09/07/23 1651 [facility]
== END 2024-02-07 21:54 | disposition short-term general hospital (02) ==
LOC: ER 16:32
DX: S62.616B Displaced fracture of proximal phalanx of right little finger, initial encounter for open fracture (principal); S63.283A Dislocation of proximal interphalangeal joint of left middle finger, initial encounter; S20.219A Contusion of unspecified front wall of thorax, initial encounter; S00.83XA Contusion of other part of head, initial encounter; R11.2 Nausea with vomiting, unspecified; W11.XXXA Fall on and from ladder, initial encounter
CPT/HCPCS: 36415; 70450; 71045; 71260; 72125; 74177; 80048; 82565; 84484; 85025; 85610; 86850; 86900; 86901; 96372; 99285; J0690; J1170; J2001; J2405; J2765; Q9967